=== PATIENT | female | born 1990 | race African-American/Black ===

== ENCOUNTER 2021-10-22 15:52 | Inpatient (IN) | payer OTHER ==
[2021-10-22 17:47] VITALS: BMI 21.2
[2021-10-23] MEDS ORDERED: guaiFENesin 200 MG/10 ML 10 ML UNIT-DOSE CUPS PO PRN (02:21)
[2021-10-23] MEDS ORDERED: MAGNESIUM HYDROX 2400MG/30ML ORAL SUSPENSION 30 ML CUP PO PRN (02:21)
[2021-10-23] MEDS ORDERED: MAG HYDROX/AL HYDROX/SIMETH 30 ML UNIT-DOSE CUP PO PRN (02:21)
[2021-10-23] MEDS ORDERED: IBUPROFEN 400 MG TABLET (FP) PO PRN (02:21)
[2021-10-23] MEDS ORDERED: P-EPHED 60MG/TRIPROLIDI 2.5MG TABLET PO PRN (02:21)
[2021-10-23] MEDS ORDERED: MAGNESIUM CITRATE 300 ML BOTTLE PO PRN (02:21)
[2021-10-23] MEDS ORDERED: LOPERAMIDE HCL 2 MG CAPSULE PO PRN (02:21)
[2021-10-23] MEDS ORDERED: TUBERCULIN PPD 5 TU/0.1ML VIAL ID ONE (03:40)
[2021-10-23] MEDS: ACETAMINOPHEN 325 MG TABLET (FP) PO PRN ×2 (10:59→22:05)
[2021-10-23] MEDS: PRENATAL VITAMINS W/ FOLIC ACID TABLET (FP) PO SCH (10:59)
[2021-10-23] MEDS: hydrOXYzine PAMOATE 25 MG CAPSULE (FP) PO PRN ×2 (11:00→22:04)
[2021-10-23] MEDS: NICOTINE POLACRILEX 2 MG GUM BC PRN ×2 (11:42→14:40)
[2021-10-23 13:08] LABS: PH,URINE 5.5 (5.0-8.0); URINE APPEARANCE CLEAR; URINE BILIRUBIN NEGATIVE (NEGATIVE); URINE COLOR DK YELLOW; URINE GLUCOSE (UA) NEGATIVE (NEGATIVE); URINE KETONE NEGATIVE (NEGATIVE); URINE LEUK ESTERASE NEGATIVE (NEGATIVE); URINE NITRITE NEGATIVE (NEGATIVE); URINE PROTEIN NEGATIVE (NEGATIVE)
[2021-10-23] MEDS: THIAMINE HCL 100 MG TABLET (FP) PO SCH (22:04)
[2021-10-23] MEDS: MELATONIN 5 MG TABLETS PO PRN (22:04)
[2021-10-23] MEDS: METHOCARBAMOL 500 MG TABLET PO PRN (22:06)
[2021-10-23] MEDS: NICOTINE 10 MG CARTRIDGE (INHALER) IH PRN (22:06)
[2021-10-24] MEDS: PRENATAL VITAMINS W/ FOLIC ACID TABLET (FP) PO SCH (10:37)
[2021-10-24] MEDS: hydrOXYzine PAMOATE 25 MG CAPSULE (FP) PO PRN ×2 (10:38→21:41)
[2021-10-24] MEDS: ACETAMINOPHEN 325 MG TABLET (FP) PO PRN ×2 (10:38→21:39)
[2021-10-24] MEDS: METHOCARBAMOL 500 MG TABLET PO PRN ×2 (10:39→21:39)
[2021-10-24] MEDS: NICOTINE POLACRILEX 2 MG GUM BC PRN (14:33)
[2021-10-24] MEDS: THIAMINE HCL 100 MG TABLET (FP) PO SCH (21:39)
[2021-10-24] MEDS: MELATONIN 5 MG TABLETS PO PRN (21:39)
[2021-10-25] MEDS: PRENATAL VITAMINS W/ FOLIC ACID TABLET (FP) PO SCH (10:56)
[2021-10-25] MEDS: NICOTINE POLACRILEX 2 MG GUM BC PRN ×2 (10:57→12:59)
[2021-10-25 11:29] LABS: HEMATOCRIT 38.5 % (32.4-45.2); HEMOGLOBIN 12.9 GM/dL (10.7-15.3); MCH 29.7 pg (25.7-33.7); MCHC 33.5 g/dl (32.0-36.0); MEAN CELL VOLUME 88.6 fl (80-96); MEAN PLT VOLUME 9.6 fl (7.5-11.1); PLATELET COUNT 210 10^3/uL (134-434); RBC 4.35 M/mm3 (3.60-5.2); RDW 14.1 % (11.6-15.6); WHITE BLOOD COUNT 5.5 K/mm3 (4.0-10.0)
[2021-10-25 12:15] LABS: ALBUMIN 3.8 g/dl (3.4-5.0); BILIRUBIN,TOTAL 0.4 mg/dL (0.2-1); CALCIUM 8.6 mg/dL (8.5-10.1); CREATININE 0.8 mg/dL (0.55-1.3); TOT PROT 6.4 g/dl (6.4-8.2)
[2021-10-25 12:38] LABS: HIV INTERPRETATION NEGATIVE (NEGATIVE)
[2021-10-25] MEDS ORDERED: ALBUTEROL SO4 HFA INHALER IH PRN (14:11)
[2021-10-25] MEDS: SENNOSIDES 8.6MG TABLET (FP) PO SCH (15:54)
[2021-10-25] MEDS: EMTRICITABINE 200MG/TENOFOVIR 300MG PO SCH (15:54)
[2021-10-25] MEDS: THIAMINE HCL 100 MG TABLET (FP) PO SCH (21:27)
[2021-10-25] MEDS: hydrOXYzine PAMOATE 25 MG CAPSULE (FP) PO PRN (21:27)
[2021-10-25] MEDS: NICOTINE 10 MG CARTRIDGE (INHALER) IH PRN (21:28)
[2021-10-26] MEDS: METHOCARBAMOL 500 MG TABLET PO PRN ×2 (06:42→21:19)
[2021-10-26] MEDS: PRENATAL VITAMINS W/ FOLIC ACID TABLET (FP) PO SCH (10:35)
[2021-10-26] MEDS: SENNOSIDES 8.6MG TABLET (FP) PO SCH (10:37)
[2021-10-26] MEDS: EMTRICITABINE 200MG/TENOFOVIR 300MG PO SCH (10:37)
[2021-10-26] MEDS: hydrOXYzine PAMOATE 25 MG CAPSULE (FP) PO PRN ×2 (10:37→21:20)
[2021-10-26] MEDS: NICOTINE POLACRILEX 2 MG GUM BC PRN ×2 (10:38→21:20)
[2021-10-26] MEDS: ACETAMINOPHEN 325 MG TABLET (FP) PO PRN (10:40)
[2021-10-26] MEDS: THIAMINE HCL 100 MG TABLET (FP) PO SCH (21:20)
[2021-10-27] MEDS: PRENATAL VITAMINS W/ FOLIC ACID TABLET (FP) PO SCH (10:27)
[2021-10-27] MEDS: EMTRICITABINE 200MG/TENOFOVIR 300MG PO SCH (10:28)
[2021-10-27] MEDS: METHOCARBAMOL 500 MG TABLET PO PRN (10:28)
[2021-10-27] MEDS: SENNOSIDES 8.6MG TABLET (FP) PO SCH (10:28)
[2021-10-27] MEDS: NICOTINE POLACRILEX 2 MG GUM BC PRN ×2 (10:29→21:37)
[2021-10-27] MEDS ORDERED: BUPRENORPHINE/NALOXONE 2 MG/0.5 MG FILM PACKET SL ONE (13:32)
[2021-10-27 14:08] LABS: SARS-CoV-2 NAA Not Detected (Not Detected)
[2021-10-27] MEDS: THIAMINE HCL 100 MG TABLET (FP) PO SCH (21:36)
[2021-10-27] MEDS: NICOTINE 10 MG CARTRIDGE (INHALER) IH PRN (21:37)
[2021-10-28] MEDS: NICOTINE POLACRILEX 2 MG GUM BC PRN ×2 (06:44→13:14)
[2021-10-28] MEDS: EMTRICITABINE 200MG/TENOFOVIR 300MG PO SCH (11:05)
[2021-10-28] MEDS: SENNOSIDES 8.6MG TABLET (FP) PO SCH (11:05)
[2021-10-28] MEDS: PRENATAL VITAMINS W/ FOLIC ACID TABLET (FP) PO SCH (11:06)
[2021-10-28] MEDS: BUPRENORPHINE/NALOXONE 2 MG/0.5 MG FILM PACKET SL SCH (11:08)
[2021-10-28] MEDS: THIAMINE HCL 100 MG TABLET (FP) PO SCH (21:28)
[2021-10-28] MEDS: hydrOXYzine PAMOATE 25 MG CAPSULE (FP) PO PRN (21:28)
[2021-10-28] MEDS: MELATONIN 5 MG TABLETS PO PRN (21:28)
[2021-10-29 07:23] VITALS: BP 133/90; PULSE 76; TEMP 97.3
[2021-10-29] MEDS: PRENATAL VITAMINS W/ FOLIC ACID TABLET (FP) PO SCH (09:33)
[2021-10-29] MEDS: EMTRICITABINE 200MG/TENOFOVIR 300MG PO SCH (09:34)
[2021-10-29] MEDS: BUPRENORPHINE/NALOXONE 2 MG/0.5 MG FILM PACKET SL SCH (09:35)
[2021-10-29] MEDS: SENNOSIDES 8.6MG TABLET (FP) PO SCH (09:39)
== END 2021-10-29 10:25 | disposition home or self-care (01) | DRG 772 ==
LOC: YASAS 15:52 → Y5N 19:34
PROVIDERS: ADMIT Allergy & Immunology; ATTEND Allergy & Immunology
PROC: HZ42ZZZ Group Counseling for Substance Abuse Treatment, Cognitive-Behavioral (ICD-10-PCS; principal; 2021-10-22)
DX: F11.20 Opioid dependence, uncomplicated (principal); F17.210 Nicotine dependence, cigarettes, uncomplicated; F41.8 Other specified anxiety disorders; J45.909 Unspecified asthma, uncomplicated; Z62.810 Personal history of physical and sexual abuse in childhood; Z91.410 Personal history of adult physical and sexual abuse; Z51.81 Encounter for therapeutic drug level monitoring; Z91.010 Allergy to peanuts; Z91.018 Allergy to other foods
CPT/HCPCS: 36415; 80053; 81003; 81025; 85027; 86780; 86803; 87389; 87811; C9803-CS; U0003; U0005